=== PATIENT | female | born 1965 | race Caucasian/White ===

== ENCOUNTER 2024-04-29 08:07 | Outpatient (CLI) | payer OTHER, SELFPAY ==
--- NOTE | ~2024-04-29 | US_ITS ---
COMPLETE ABDOMINAL ULTRASOUND Ordering provider: Lizeth Schroeder, ARGENIS History: . RUQ pain . Comparison: None. FINDINGS: LIVER: Normal size. Fat infiltration. No focal hepatic lesions or perihepatic fluid collections are i dentified. GALLBLADDER: Unremarkable. No evidence for stones, sludge, gallbladder wall thickening or pericholecy stic fluid collections. A negative sonographic Lee's sign was noted. BILIARY DUCTS: No evidence for intra or extrahepatic biliary dilation. Common bile duct measures 3 mm in diameter which is within normal limits. PANCREAS: Normal echotexture and size. KIDNEYS: Right measures 11.7 cm in length.. There is no evidence for hydronephrosis, solid renal mass , renal calculi or perinephric fluid collections. No renal cysts. UPPER ABDOMINAL AORTA: Normal in caliber. IVC: Patent. FREE FLUID: None. IMPRESSION: 1. Fat infiltration of the liver otherwise, Unremarkable right upper quadrant ultrasound of the abdom en. Reviewed, dictated and finalized at location A. IMPRESSION: 1. Fat infiltration of the liver otherwise, Unremarkable right upper quadrant u ltrasound of the abdomen.
== END 2024-04-29 08:08 | disposition home or self-care (01) ==
PROVIDERS: PCP Physician Assistant; Visit Provider Physician Assistant
DX: R10.11 Right upper quadrant pain (principal); K76.0 Fatty (change of) liver, not elsewhere classified
CPT/HCPCS: 76705